=== PATIENT | male | born 1985 | race Caucasian/White ===

== ENCOUNTER 2023-02-25 08:21 | Emergency (ER) | payer OTHER, SELFPAY ==
[2023-02-25 08:32] VITALS: BP 129/90; PULSE 97; RESP 16; TEMP 36.3; O2SAT 99
--- NOTE | 2023-02-25 08:58 | ED.GENADULT ---
HPI - General Adult General Chief complaint: Upper Respiratory Infection Stated complaint: Sore Throat Source: patient Mode of arrival: ambulatory Limitations: no limitations History of Present Illness HPI narrative: Patient presents for evaluation of sore throat for the last 10 days. No fever, chills, nausea, vomiting, otalgia, shortness of breath. He has a cough in the mornings which has been productive of yellow sputum. He tried taking mucinex for his symptoms. 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 He has had similar symptoms in the past. Prednisone was helpful at that time. He does not smoke. No recent sick contacts to his knowledge. Related Data Allergies Allergy/AdvReac Type Severity Reaction Status Date / Time Opioids - Morphine Analogues Allergy Other Verified 02/25/23 08:49 Review of Systems Review of Systems: CONSTITUTIONAL: Denies fever, chills, or sweats. EYES: Denies visual changes, redness, or discharge. ENT: Reports sore throat. Denies rhinorrhea, congestion, or otalgia. CARDIOVASCULAR: Denies chest pain, palpitations, or edema. RESPIRATORY: Denies cough or dyspnea. GASTROINTESTINAL: Denies abdominal pain, nausea, vomiting, or diarrhea. GENITOURINARY: Denies dysuria or hematuria. SKIN: Denies rash or itching. MUSCULOSKELETAL: Denies back pain, joint pain, or myalgia. NEUROLOGIC: Denies headache, numbness, dizziness, or weakness. PSYCHIATRIC: Denies anxiety or depression. [facility] Past Medical History Medical History History of deviated nasal septum Surgical History Surgical History History of nasal septoplasty Family History Family History Mother Family history non-contributory Social History Social History Smoking status: Never smoker Substance use: never Living arrangements: with family Gender identity (if verbalized by the patient): Male Sexual Orientation (if Verbalized by the Patient): Straight or Heterosexual Spiritual care concerns: No Exam Narrative: GENERAL: Well-appearing, well-nourished, and in no acute distress. HEAD: Normocephalic, atraumatic. EYES: PERRLA and EOMI. ENT: Nares clear, no rhinorrhea or epistaxis. Mucous membranes moist. Posterior pharyngeal erythema without exudate. Uvula is midline. Bilateral TMs pearly william nonbulging NECK: Supple. No adenopathy or masses. No carotid bruits or JVD CHEST: Clear to auscultation. No respiratory distress. No wheezes rales or rhonchi HEART: Regular rate and rhythm. No murmur heard. Normal peripheral pulses. ABDOMEN: Soft, nontender, nondistended, normal active bowel sounds. EXTREMITIES: Normal range of motion. No edema. SKIN: Warm, dry, no rash. NEURO: No focal deficits. Alert and oriented x3. PSYCH: Normal mood and affect. Course Course Emergency Course: This is a 37-year-old male who presented for evaluation of sore throat. Rapid strep negative. Based upon duration of time in which he has been symptomatic, I believe it would be reasonable to treat with antibiotics. He also requested a prescription for prednisone due to upcoming vocal performance. This has been effective in the past for him. Follow up with primary provider. Go to the ER for worsening symptoms. Pt in agreement with plan of care. Level of Care: Express Care Visit Vital Signs Vital signs: Vital Signs Temperature 36.3 C L 02/25/23 08:32 Pulse Rate 97 02/25/23 08:32 Respiratory Rate 16 02/25/23 08:32 Blood Pressure 129/90 02/25/23 08:32 Pulse Oximetry 99 02/25/23 08:32 Temperature 36.3 C L 02/25/23 08:32 Pulse Rate 97 02/25/23 08:32 Respiratory Rate 16 02/25/23 08:32 Blood Pressure 129/90 02/25/23 08:32 Pulse Oximetry
== END 2023-02-25 09:00 | disposition home or self-care (01) ==
PROVIDERS: Emergency Provider Nurse Practitioner; PCP Emergency Medicine
DX: J02.9 Acute pharyngitis, unspecified (principal)
CPT/HCPCS: 87081; 87880; 99213; G0463